=== PATIENT | female | born 1965 | race African-American/Black ===

== ENCOUNTER → 2016-10-31 | Day surgery (SDC) | payer BC ==
[~2016-10-31] MED LIST: ALPR0.5T PO; AMLO1TAB6 PO; CYCL10TA2 PO; ESTR0.5T PO; HYDR-2762 PO; IBUP-1060 PO; IV RINGERS,LACTATED 1000ML 1,000 ML IV SCH; LABE100T3 PO; LIDOCAINE 2% PF Vial for OR 5 ML VIAL. ONE; ORPH100T PO; PROPOFOL 40 ML IV ONE; TELM80TA PO
[2016-10-31 17:00] VITALS: BP 124/71
== END | disposition home or self-care (01) ==
LOC: ENDOS 14:48
PROVIDERS: ATTEND Internal Medicine Gastroenterology
DX: Z12.11 Encounter for screening for malignant neoplasm of colon (principal); K64.0 First degree hemorrhoids; K57.30 Diverticulosis of large intestine without perforation or abscess without bleeding; F41.9 Anxiety disorder, unspecified; I10 Essential (primary) hypertension; Z91.041 Radiographic dye allergy status; Z83.3 Family history of diabetes mellitus; Z82.49 Family history of ischemic heart disease and other diseases of the circulatory system; Z86.69 Personal history of other diseases of the nervous system and sense organs; Z90.710 Acquired absence of both cervix and uterus; Z98.51 Tubal ligation status
CPT/HCPCS: 45378; J2001; J2704

== ENCOUNTER → 2017-02-19 | Outpatient (CLI) | payer BC ==
[2016-10-31 17:00] VITALS: BP 124/71
[~2017-02-19] MED LIST changes: -IV RINGERS,LACTATED 1000ML 1,000 ML IV SCH; -LIDOCAINE 2% PF Vial for OR 5 ML VIAL. ONE; -PROPOFOL 40 ML IV ONE
--- NOTE | 2017-02-19 12:01 | KCIC ---
DATE: 02/19/2017 EXAM: MAMMO JONEL SCREENING BILATERAL HISTORY: Routine screening COMPARISON: 08/14/2013 This study was interpreted with the benefit of Computerized Aided Detection (CAD). The breast parenchyma shows scattered fibroglandular densities. Breast parenchyma level B. FINDINGS: 2-D and 3-D tomosynthesis imaging was performed in CC and MLO projection. No new or enlarging breast densities are seen. There multiple benign type calcifications in both breasts. No suspicious microcalcifications have developed. Benign-appearing lymph node type densities are present in the axillary regions. IMPRESSION: Stable mammograms without evidence of malignancy. BI-RADS CATEGORY: 2 BENIGN FINDING(S) RECOMMENDED FOLLOW-UP: 12M 12 MONTH FOLLOW-UP PQRS compliance statement: Patient information was entered into a reminder system with a target due date for the next mammogram. Mammography is a sensitive method for finding small breast cancers, but it does not detect them all and is not a substitute for careful clinical examination. A negative mammogram does not negate a clinically suspicious finding and should not result in delay in biopsying a clinically suspicious abnormality. "Our facility is accredited by the [employer] Mammography Program."
== END | disposition home or self-care (01) ==
LOC: KCIC MAMMO 09:40
PROVIDERS: ATTEND Family Medicine
DX: Z12.31 Encounter for screening mammogram for malignant neoplasm of breast (principal)
CPT/HCPCS: 77063; G0202; 77067

== ENCOUNTER 2017-02-23 06:24 | Outpatient (CLI) | payer BC ==
[2017-02-23] VITALS (11 sets, daily range): BP systolic 80–154; BP diastolic 80–98
[~2017-02-23] VITALS: Ht 165.1 cm; Wt 85.7 kg
[~2017-02-23 06:24] MED LIST changes: -CYCL10TA2 PO; -ESTR0.5T PO; -ORPH100T PO
[2017-02-23] MEDS ORDERED: diphenhydrAMINE 50 MG/ML VIAL IVP ONE (06:45)
[2017-02-23] MEDS ORDERED: FAMOTIDINE 20 MG/2 ML VIAL IVP ONE (06:45)
[2017-02-23] MEDS ORDERED: methylPREDNISolone SOD SUCC PF 125 MG/2 ML VIAL. IV ONE (06:45)
[2017-02-23] MEDS ORDERED: CYCL10TA2 PO (07:03)
[2017-02-23] MEDS ORDERED: ESTR0.5T PO (07:03)
[2017-02-23] MEDS ORDERED: ORPH100T PO (07:03)
[2017-02-23 07:21] LABS: HEMATOCRIT 41.2 % (36.0-47.0); HEMOGLOBIN 13.4 g/dL (12.0-15.5); RED BLOOD COUNT 4.88 x10^6/uL (3.50-5.40); RED CELL DISTRIBUTION WIDTH 14.4 % (11.5-14.5); WHITE BLOOD COUNT 7.6 x10^3/uL (4.0-11.0)
[2017-02-23 07:31] LABS: CALCIUM 8.8 mg/dL (8.5-10.1); GFR 70.5; POTASSIUM 3.5 mmol/L (3.5-5.1)
[2017-02-23 07:34] LABS: PROTHROMBIN TIME PATIENT 12.4 SEC (11.7-14.0)
[2017-02-23] MEDS ORDERED: diphenhydrAMINE 50 MG/ML VIAL ONE (07:34)
[2017-02-23] MEDS ORDERED: methylPREDNISolone SOD SUCC PF 125 MG/2 ML VIAL. ONE (07:34)
[2017-02-23] MEDS ORDERED: FAMOTIDINE 20 MG/2 ML VIAL ONE (07:34)
[2017-02-23] MEDS ORDERED: LIDOCAINE 2% 20 ML VIAL. ONE (07:42)
[2017-02-23] MEDS ORDERED: IOHEXOL 300 MG/ML 100ML VIAL. ONE (07:42)
[2017-02-23] MEDS ORDERED: fentaNYL PF VIAL 100 MCG/2 ML VIAL ONE (07:57)
[2017-02-23] MEDS ORDERED: MIDAZOLAM HCL/PF 2 MG/2 ML VIAL. ONE (07:58)
--- NOTE | 2017-02-23 08:03 | PDOC ---
MODERATE SEDATION ASSESSMENT RISKS/ALTERNATIVES Risks/Alternatives Risks and alternatives of this type of sedation and procedure discussed with: RISK/ALTERNATIVES: Patient H & P ON CHART H & P H & P on chart and reviewed for co-morbid conditions and appropriate labs. H&P ON CHART: Yes STATUS PREG STATUS ASSESSED: N/A MEDS/ALLERGIES REVIEWED Meds/Allergies Reviewed Medications and Allergies including time and route of recently administered narcotics and sedatives. MEDS/ALLERGIES REVIEWED: Yes ASA RATING ASA RATING: II AIRWAY ASSESSMENT Airway Assessment Airway patency, oral function limitations, presence of caps, crowns, dentures, partials, and ability to extend neck assessed. AIRWAY ASSESSMENT: Yes MALLAMPATI SCORE MALLAMPATI SCORE: II PRE-SEDATION ASSESSMENT PRE-SEDATION ASSESSMENT: Yes CARLOS FINE MD Feb 23, 2017 08:03
[2017-02-23] MEDS ORDERED: IOHEXOL 300 MG/ML 100ML VIAL. IART ONE (08:45)
[2017-02-23] MEDS ORDERED: LIDOCAINE 2% 20 ML VIAL. IJ ONE (08:45)
[2017-02-23] MEDS ORDERED: fentaNYL PF VIAL 100 MCG/2 ML VIAL IV ONE (08:45)
[2017-02-23] MEDS ORDERED: MIDAZOLAM HCL/PF 2 MG/2 ML VIAL. IV ONE (08:45)
[2017-02-23] MEDS ORDERED: IV 1/2 NORMAL SALINE 1,000 ML IV SCH (08:49)
[2017-02-23] MEDS ORDERED: NITROGLYCERIN SUBLINGUAL 0.4 MG BOTTLE OF 25. SL PRN (09:00)
--- NOTE | 2017-02-23 09:17 | CARD ---
APPROVED REPORT Procedure(s) performed: 1. Left heart catheterization, selective coronary angiography and left ventr iculography 2. Bilateral selective renal angiography Moderate Sedation: 39 Minutes INDICATION The indication(s) include : Unstable angina and resistant hypertension. PROCEDURE NARRATIVE After explaining the risks, benefits and alternative options, informed consent was obtained from beronica ent. Patient was brought to the cardiac Production Control Technologist and her right groin was prepped and draped in the us ual fashion. 20 mL of 2% lidocaine was infiltrated into the skin and subcutaneous tissues for local a nesthesia. Arterial access was obtained in the right common femoral artery and a 6 [place] sheath was inserted. 6 [place] JL4 and 6 [place] JR4 catheters were used to perform selective angiography of the l eft and right coronary arteries. The 6 [place] JR4 catheter was used to perform selective angiography of the left and right renal arteries. Finally, 6 [place] pigtail catheter was used to perform left shannan triculography. Patient tolerated the procedure well. Hemostasis was achieved using Angio-Seal. There were no immediate complications. The following findings were noted. FINDINGS 1. Hemodynamics: Left ventricular end-diastolic pressure 19 mmHg. No pullback gradient across the ao rtic valve. 2. Left ventriculography: Normal left ventricle systolic function with ejection fraction estimated at 65-70%. No significant mitral concussion seen. 3. Coronary angiography: a. The left main coronary artery arose from the left sinus of Valsalva, gave rise to the left anteri or descending, ramus intermedius and left circumflex arteries and showed 40-50% calcified stenosis in the distal segment. b. The left anterior descending artery showed 90% stenosis in the proximal segment, 90% stenosis fol lowed by 100% chronic total occlusion in the midsegment. There is reconstitution of the very distal s egment from left to left collaterals. c. The ramus intermedius artery showed 90% proximal segment and 80% midsegment stenoses. d. The left circumflex artery showed 90% stenosis in the midsegment. The first obtuse marginal branc h showed 90% stenosis in the proximal segment. The second obtuse marginal branch showed 50% stenosis in the proximal segment. e. The right coronary artery arose from the right sinus of Valsalva that showed 95-99% stenosis in th e midsegment followed by 100% chronic total occlusion in the mid to distal segment. There is distal r econstitution of the posterior descending branch from left to right and right to right collaterals. 4. Selective renal angiography: The left kidney is supplied by one main renal artery that did not s how any significant stenosis. The right kidney is supplied by one main renal artery as felt that show ed mild fibromuscular dysplasia in the midsegment. Conclusion 1. Significant three-vessel coronary artery disease as described above. 2. Normal left ventricle systolic function with ejection fraction estimated at 65-70%. 3. No significant renal artery stenosis. Mild fibromuscular dysplasia noted in the right renal arter y. Recommendations Cardiothoracic surgical team referral for possible coronary artery bypass surgery.
== END 2017-02-23 11:30 | disposition home or self-care (01) ==
LOC: CCL 06:24
PROVIDERS: ATTEND Internal Medicine Cardiovascular Disease
DX: I25.10 Atherosclerotic heart disease of native coronary artery without angina pectoris (principal); K21.9 Gastro-esophageal reflux disease without esophagitis; I10 Essential (primary) hypertension; F41.9 Anxiety disorder, unspecified; Z90.710 Acquired absence of both cervix and uterus; Z86.69 Personal history of other diseases of the nervous system and sense organs; Z98.51 Tubal ligation status; Z91.041 Radiographic dye allergy status
CPT/HCPCS: 36252; 80048; 85027; 85610; 93458; 99152; 99153; C1769; C1771; C1892; G0269; J1200; J1644; J2250; J2930; J3010; Q9967; S0028; J2001

== ENCOUNTER → 2017-04-23 | Outpatient (CLI) | payer BC | END | disposition home or self-care (01) | LOC: KCIC US 09:34 | DX: M79.89 Other specified soft tissue disorders (principal); Z95.1 Presence of aortocoronary bypass graft | CPT/HCPCS: 93971 ==

== ENCOUNTER → 2018-03-01 | Outpatient (CLI) | payer BC ==
[2017-02-23 10:45] VITALS: BP_DIAS 80
[2017-02-23 11:06] VITALS: BP_SYST 80
[~2018-03-01] MED LIST changes: +CYCL10TA2 PO; +ESTR0.5T PO; -HYDR-2762 PO; +HYDR-2765 PO; -LABE100T3 PO; +LABE100T5 PO; +ORPH100T PO
--- NOTE | 2018-03-01 10:40 | RAD ---
MR#: [id number] Date of Study: 03/01/2018 Ordering Physician: CARLOS FINE, Referring Physician: CARLOS FINE, Tech: Tristin Murillo MBA, RDMS, RVT, RDCS, RTR APPROVED REPORT Patient Location : OUT-PATIENT Indications Lower Extremity Edema : Bilateral Findings The right great saphenous vein measures 8.1 mm the left great saphenous vein measures 4.4 mm. Both of these veins do not demonstrate any evidence of reflux. The bilateral lesser saphenous veins do not demonstrate any evidence of reflux Bilateral saphenofemoral junctions do not reveal any obvious evidence of thrombus on limited imaging. Critical Notification Critical Value: No Signed by : Lebron Armando, Electronically Approved : 03/01/2018 10:39:28
== END | disposition home or self-care (01) ==
LOC: US 08:19
PROVIDERS: ATTEND Internal Medicine Cardiovascular Disease
DX: R60.0 Localized edema (principal)
CPT/HCPCS: 93970

== ENCOUNTER → 2018-11-20 | Outpatient (CLI) | payer BC ==
[2017-02-23 10:45] VITALS: BP_DIAS 80
[2017-02-23 11:06] VITALS: BP_SYST 80
--- NOTE | 2018-11-20 12:43 | KCIC ---
MR of the right shoulder HISTORY: Right shoulder pain, chronic. Limited range of motion. TECHNIQUE: Routine multiplanar sequences are obtained. FINDINGS: The acromioclavicular joint is degenerative with moderate undersurface hypertrophy and mass effect. Full-thickness rupture of the supraspinatus tendon. Margins are difficult to define due to the lack of much effusion but retraction measures about 2 cm and the tear measures at least 2.5 cm AP diameter. Trace subdeltoid bursal effusion. Gcel-yu-rzjodwox rotator cuff muscle atrophy. No significant glenohumeral joint effusion. Mild degenerative changes at the glenohumeral joint. Biceps tendinosis with mild partial interstitial tearing. No bone destruction or acute fracture. No acute soft tissue abnormality. IMPRESSION: 1. Moderate full-thickness rotator cuff tear of the supraspinatus tendon. 2. Biceps tendinosis with mild partial interstitial tear. 3. Primary osteoarthritis. Electronically signed by: Valentin Duarte MD (11/20/2018 12:40 PM) [facility]
== END | disposition home or self-care (01) ==
LOC: KCIC MRI 07:49
PROVIDERS: ATTEND Family Medicine
DX: M75.101 Unspecified rotator cuff tear or rupture of right shoulder, not specified as traumatic (principal); M19.011 Primary osteoarthritis, right shoulder
CPT/HCPCS: 73221

== ENCOUNTER → 2019-01-10 | Outpatient (CLI) | payer BC ==
[2017-02-23 10:45] VITALS: BP_DIAS 80
[2017-02-23 11:06] VITALS: BP_SYST 80
--- NOTE | 2019-01-10 16:52 | KCIC ---
Examination: THYROID ULTRASOUND History: Thyroid goiter Comparison/Correlation: None Findings: Right thyroid lobe measures 5.3 cm x 1.1 cm x 1.6 cm. Left thyroid lobe measures 5.5 cm x 1.2 cm x 1.8 cm. Normal echotexture is present. No masses or cysts. Prominent vessels within the left thyroid lobe medially are present with flow evident. Thyroid isthmus is unremarkable measuring up to 0.2 cm anteroposterior. Impression: No thyroid goiter. No thyroid mass identified. Unremarkable exam. Electronically signed by: Tate Luna MD (01/10/2019 4:49 PM) [facility]
--- NOTE | 2019-01-12 08:48 | KCIC ---
BILATERAL SCREENING MAMMOGRAM, 3-D History: Routine screening. Comparison: None available. Technique: MLO and CC digital tomosynthesis (3D) images obtained. Radiologist reviewed these images on dedicated workstation. Findings: Breast Tissue Density B : There are scattered areas of fibroglandular density. There are a few bilateral benign calcifications. There are no dominant masses, suspicious microcalcifications, or architectural distortion. IMPRESSION: No mammographic evidence of malignancy. Recommend routine screening. BI-RADS category 2: Benign findings. The images were reviewed with computer-aided detection. Patient information is entered into reminder system with a target due date for the next screening mammogram. Mammography is the most sensitive method for finding small breast cancers, but it does not detect them all and is not a substitute for careful clinical examination. A negative mammogram does not negate a clinically suspicious finding and should not result in delay in biopsying a clinically suspicious abnormality. "Our facility is accredited by the [employer] Mammography Program." Electronically signed by: Jonathan Buchanan MD (01/12/2019 8:46 AM) [id number]
== END | disposition home or self-care (01) ==
LOC: KCIC US 14:43
PROVIDERS: ATTEND Family Medicine
DX: Z12.31 Encounter for screening mammogram for malignant neoplasm of breast (principal); N64.89 Other specified disorders of breast; E04.9 Nontoxic goiter, unspecified
CPT/HCPCS: 76536; 77063; 77067

== ENCOUNTER → 2019-02-26 | Outpatient (CLI) | payer BC ==
[2017-02-23 10:45] VITALS: BP_DIAS 80
[2017-02-23 11:06] VITALS: BP_SYST 80
--- NOTE | 2019-02-26 11:15 | CARD ---
MR#: [id number] Date of Study: 02/26/2019 Ordering Physician: CARLOS FINE, Referring Physician: CARLOS FINE, Tech: Jennifer Ruizspeedy APPROVED REPORT EXAM: Two-dimensional and M-mode echocardiogram with Doppler and color Doppler. Other Information Quality : AverageHR: 57bpm INDICATION Cardiac Disease: CAD Surgery/Intervention CABG: Date: 2017 3x Bypass RISK FACTORS Hypertension Hyperlipidemia 2D DIMENSIONS RVDd3.6 (2.9-3.5cm)Left Atrium(2D)3.5 (1.6-4.0cm) IVSd1.0 (0.7-1.1cm)Aortic Root(2D)3.1 (2.0-3.7cm) LVDd4.5 (3.9-5.9cm)LVOT Diameter2.0 (1.8-2.4cm) PWd0.9 (0.7-1.1cm)LVDs2.7 (2.5-4.0cm) FS (%) 39.2 %SV64.7 ml LVEF(%)69.8 (>50%) Aortic Valve AoV Peak Wilmar.175.0cm/sAoV VTI39.6cm AO Peak GR.12.3mmHgLVOT Peak Wilmar.116.1cm/s LVOT VTI 30.20cmAO Mean GR.7mmHg SAIGE (VMAX)1.96pn3MEO (VTI)2.31cm2 Mitral Valve MV E Cyrybvsv445.4cm/sMV DECEL KEEO649yy MV A Akgyhigk71.2cm/sMV XRH72dg E/A Ratio1.3MVA (PHT)3.27cm2 TDI E/Lateral E'7.4E/Medial E'12.8 Pulmonary Valve PV Peak Faevknah766.7cm/sPV Peak Grad.4mmHg Tricuspid Valve TR P. Baitnqvm794os/sRAP IGITRSMO6gtEk TR Peak Gr.70psZqOKHB91zkMp Pulmonary Vein S1 Nwlvowtz80.6cm/sD2 Tlneumgg93.2cm/s PVa xhyvdqvq396ewox LEFT VENTRICLE The left ventricle is normal size. There is normal left ventricular wall thickness. The left ventricu lar systolic function is normal. The Ejection Fraction is 60%. There is normal LV segmental wall alondra on. Transmitral Doppler flow pattern is Grade II-pseudonormal filling dynamics. RIGHT VENTRICLE The right ventricle is normal size. There is normal right ventricular wall thickness. The right ventr icular systolic function is normal. ATRIA The left atrium size is normal. The right atrium size is normal. The atrial septum is aneurysmal. AORTIC VALVE The aortic valve is thickened but opens well. Doppler and Color Flow revealed no significant aortic r egurgitation. There is no significant aortic valvular stenosis. MITRAL VALVE The mitral valve is thickened but opens well. There is no evidence of mitral valve prolapse. There is no mitral valve stenosis. Doppler and Color-flow revealed trace mitral regurgitation. TRICUSPID VALVE The tricuspid valve is normal in structure and function. Doppler and Color Flow revealed trace tricus pid regurgitation with an estimated PAP of 35 mmHg. There is no tricuspid valve stenosis. PULMONIC VALVE The pulmonic valve is not well visualized. Doppler and Color Flow revealed trace to mild pulmonic rakel vular regurgitation. GREAT VESSELS The aortic root is normal in size. The IVC was not well visualized. PERICARDIAL EFFUSION There is no evidence of significant pericardial effusion. Critical Notification Critical Value: No <Conclusion> The left ventricular systolic function is normal. The Ejection Fraction is 60%. There is normal LV segmental wall motion. Trace mitral regurgitation. Trace tricuspid regurgitation with an estimated PAP of 35 mmHg. There is no evidence of significant pericardial effusion. Signed by : Carlos Fine, Electronically Approved : 02/26/2019 11:15:16
== END ==
LOC: ECHO 08:56
PROVIDERS: ATTEND Internal Medicine Cardiovascular Disease
DX: I37.1 Nonrheumatic pulmonary valve insufficiency (principal); I25.810 Atherosclerosis of coronary artery bypass graft(s) without angina pectoris; I11.9 Hypertensive heart disease without heart failure; E78.5 Hyperlipidemia, unspecified; K21.9 Gastro-esophageal reflux disease without esophagitis; F41.9 Anxiety disorder, unspecified; M19.90 Unspecified osteoarthritis, unspecified site; Z90.710 Acquired absence of both cervix and uterus; Z98.51 Tubal ligation status
CPT/HCPCS: 93306

== ENCOUNTER → 2020-07-14 | Outpatient (CLI) | payer BC ==
[2017-02-23 10:45] VITALS: BP_DIAS 80
[2017-02-23 11:06] VITALS: BP_SYST 80
--- NOTE | 2020-07-14 10:16 | RAD ---
MR#: [id number] Date of Study: 07/14/2020 Ordering Physician: CARLOS FINE, Referring Physician: CARLOS FINE, Tech: Tristin Murillo MBA, RDMS, RVT, RDCS, RTR APPROVED REPORT Patient Location: OUT-PATIENT Laterality:Bilateral Indications CAD Doppler Spectral Velocity Analysis Right Left pCCA 102/21 cm/spCCA 106/24 cm/s mCCA 113/29 cm/smCCA 103/24 cm/s dCCA 116/27 cm/sdCCA 96/26 cm/s Bulb 81/17 cm/sBulb 84/25 cm/s ECA 93/ cm/sECA 56/ cm/s pICA 83/22 cm/spICA 63/19 cm/s Katelin 97/20 cm/smICA 76/25 cm/s dICA 87/30 cm/sdICA 79/30 cm/s Vert. 76/ cm/sVert. 98/ cm/s Subcl. 128/ cm/sSubcl. 114/ cm/s ICA/CCA 0.84ICA/CCA 0.75 Findings Grayscale images of the bilateral carotid vessels demonstrates mild diffuse intimal hyperplasia and p laque without any significant focal obstruction. Bilateral velocities are within normal limits overall suggestive of 0 to less than 50% stenosis based on velocity criteria. Normal ICA to CCA ratios bilaterally. Normal antegrade vertebral velocities bilaterally and normal subclavian velocities bilaterally. Critical Notification Critical Value: No <Conclusion> 1. No significant carotid occlusive disease bilaterally. Signed by : Lebron Armando, Electronically Approved : 07/14/2020 10:16:41
--- NOTE | 2020-07-14 11:58 | CARD ---
MR#: [id number] Date of Study: 07/14/2020 Ordering Physician: CARLOS FINE, Referring Physician: CARLOS FINE, Tech: Jennifer Jimenez [facility] APPROVED REPORT EXAM: Two-dimensional and M-mode echocardiogram with Doppler and color Doppler. Other Information Quality : AverageHR: 51bpm INDICATION Cardiac Disease: CAD Surgery/Intervention CABG: Date: 2017 RISK FACTORS Hypertension Hyperlipidemia 2D DIMENSIONS RVDd4.3 (2.9-3.5cm)Left Atrium(2D)3.3 (1.6-4.0cm) IVSd1.0 (0.7-1.1cm)Aortic Root(2D)3.1 (2.0-3.7cm) LVDd4.1 (3.9-5.9cm)LVOT Diameter2.1 (1.8-2.4cm) PWd1.0 (0.7-1.1cm)LVDs3.0 (2.5-4.0cm) FS (%) 27.5 %SV41.1 ml LVEF(%)53.9 (>50%) Aortic Valve AoV Peak Wilmar.148.5cm/sAoV VTI32.8cm AO Peak GR.8.8mmHgLVOT Peak Wilmar.100.2cm/s LVOT VTI 28.26cmAO Mean GR.4mmHg SAIGE (VMAX)1.06zh6PGA (VTI)2.85cm2 Mitral Valve MV E Ktusyfxa06.0cm/sMV DECEL UCAU732vd MV A Xvpxctiq06.7cm/sMV RUZ65jd E/A Ratio1.0MVA (PHT)2.23cm2 TDI E/Lateral E'6.0E/Medial E'9.5 Pulmonary Valve PV Peak Wrbnnfjb135.6cm/sPV Peak Grad.5mmHg Tricuspid Valve TR P. Yxtpaifb984wy/sRAP DCINUGZN5sjHv TR Peak Gr.00yaAaMPBX77hpNq Pulmonary Vein S1 Urccndku77.7cm/sD2 Gzfzhjjn73.5cm/s PVa lcockaes777ugib LEFT VENTRICLE The left ventricle is normal size. There is normal left ventricular wall thickness. The left ventricu lar systolic function is normal and the ejection fraction is within normal range. The Ejection Fracti on is 50-55%. There is normal LV segmental wall motion. Transmitral Doppler flow pattern is Grade I-a bnormal relaxation pattern. RIGHT VENTRICLE The right ventricle is borderline dilated. There is normal right ventricular wall thickness. The righ t ventricular systolic function is normal. ATRIA The left atrium size is normal. The right atrium size is normal. The interatrial septum is intact wit h no evidence for an atrial septal defect or patent foramen ovale as noted on 2-D or Doppler imaging. AORTIC VALVE The aortic valve is calcified but opens well. Doppler and Color Flow revealed no significant aortic r egurgitation. There is no significant aortic valvular stenosis. Calculated aortic valve area is 2.93 cm2 with maximum pressure gradient of 9 mmHg and mean pressure gradient of 5 mmHg. MITRAL VALVE The mitral valve is normal in structure and function. There is no evidence of mitral valve prolapse. There is no mitral valve stenosis. Doppler and Color-flow revealed trace mitral regurgitation. TRICUSPID VALVE The tricuspid valve is normal in structure and function. Doppler and Color Flow revealed trace tricus pid regurgitation with an estimated PAP of 33 mmHg. There is no tricuspid valve stenosis. PULMONIC VALVE The pulmonic valve is not well visualized. Doppler and Color Flow revealed trace pulmonic valvular re gurgitation. There is no pulmonic valvular stenosis. GREAT VESSELS The aortic root is normal in size. The ascending aorta is normal in size. The IVC is dilated. PERICARDIAL EFFUSION There is no evidence of significant pericardial effusion. Critical Notification Critical Value: No <Conclusion> The left ventricular systolic function is normal and the ejection fraction is within normal range. Th e Ejection Fraction is 50-55%. There is normal LV segmental wall motion. Signed by : Lebron Armando, Electronically Approved : 07/14/2020 11:57:41
== END ==
LOC: US 06:46
PROVIDERS: ATTEND Internal Medicine Cardiovascular Disease
DX: I35.1 Nonrheumatic aortic (valve) insufficiency (principal); I65.23 Occlusion and stenosis of bilateral carotid arteries; I25.810 Atherosclerosis of coronary artery bypass graft(s) without angina pectoris
CPT/HCPCS: 93306; 93880

== ENCOUNTER → 2021-04-22 | Outpatient (CLI) | payer BC ==
[2017-02-23 10:45] VITALS: BP_DIAS 80
[2017-02-23 11:06] VITALS: BP_SYST 80
[~2021-04-22] MED LIST changes: +CYCL10TA19 PO; -CYCL10TA2 PO
--- NOTE | 2021-04-22 10:26 | KCIC ---
Bilateral digital screening mammograms with 3-D tomosynthesis: Reason for examination: Routine screening. Comparison is made to previous studies dated 01/10/2019 12/10/2016 Bilateral mammograms in CC and oblique projections were obtained with 2-D imaging and 3-D tomosynthes is imaging on a Siemens Inspiration unit and reviewed on the workstation. Interpretation was made wit h the benefit of CAD. The skin and nipples show no abnormalities. No abnormal axillary lymph nodes are seen. The breast par enchyma shows scattered fatty and fibroglandular density. (Breast density: Category B.) There are no dominant masses, suspicious calcifications or architectural distortion. Benign appearing calcificatio ns are present. Impression: No evidence of malignancy. Recommend routine screening. BI-RAD Category 2: Benign. "Our facility is accredited by the [employer] Mammography Program." This patient's information has been entered into a reminder system for the patient to be notified wit h the results of her examination and a target date for the next mammogram. Electronically signed by: Queenie Andrade MD (04/22/2021 10:23 AM) [email or web address]
== END ==
LOC: KCIC MAMMO 08:32
PROVIDERS: ATTEND Family Medicine
DX: Z12.31 Encounter for screening mammogram for malignant neoplasm of breast (principal)
CPT/HCPCS: 77063; 77067

== ENCOUNTER → 2021-07-15 | Outpatient (CLI) | payer BC ==
[2017-02-23 10:45] VITALS: BP_DIAS 80
[2017-02-23 11:06] VITALS: BP_SYST 80
--- NOTE | 2021-07-15 13:23 | CARD ---
MR#: [id number] Date of Study: 07/15/2021 Ordering Physician: NOHELIA MURDOCK, Referring Physician: NOHELIA MURDOCK, Tech: Jen Conrad [facility] APPROVED REPORT EXAM: Two-dimensional and M-mode echocardiogram with Doppler and color Doppler. Other Information Quality : AverageHR: 45bpm Rhythm : NSR INDICATION Palpitations Hypertension/HCVD CAD RISK FACTORS Hypertension Hyperlipidemia 2D DIMENSIONS RVDd3.9 (2.9-3.5cm)Left Atrium(2D)4.2 (1.6-4.0cm) IVSd1.2 (0.7-1.1cm)Aortic Root(2D)3.2 (2.0-3.7cm) LVDd4.5 (3.9-5.9cm)LVOT Diameter2.2 (1.8-2.4cm) PWd1.1 (0.7-1.1cm)IVSs1.5 (0.8-1.2cm) LVDs3.9 (2.5-4.0cm)FS (%) 12.3 % PWs1.2 (0.8-1.2cm)SV24.7 ml Aortic Valve AoV Peak Wilmar.151.6cm/sAoV VTI37.0cm AO Peak GR.9.2mmHgLVOT Peak Wilmar.105.1cm/s LVOT VTI 28.34cmAO Mean GR.5mmHg SAIGE (VMAX)1.91pl8RWB (VTI)2.84cm2 Mitral Valve MV E Edrtrzmi174.5cm/sMV DECEL NKHT707qy MV A Gnekrdbo48.1cm/sMV TOA66in E/A Ratio1.2MVA (PHT)3.29cm2 TDI E/Lateral E'7.6E/Medial E'10.6 Pulmonary Valve PV Peak Bqhwjdre04.4cm/sPV Peak Grad.4mmHg Tricuspid Valve TR P. Mfbsbnhd183xv/sTR Peak Gr.18mmHg LEFT VENTRICLE The left ventricle is normal size. There is mild concentric left ventricular hypertrophy. The left ve ntricular systolic function is normal. LV ejection fraction is 55 to 60%. There is normal LV segmenta l wall motion. The left ventricular diastolic function and filling is normal for age. RIGHT VENTRICLE The right ventricle is normal size. There is normal right ventricular wall thickness. The right ventr icular systolic function is normal. ATRIA The left atrium size is normal. The right atrium size is normal. The interatrial septum is intact wit h no evidence for an atrial septal defect or patent foramen ovale as noted on 2-D or Doppler imaging. AORTIC VALVE The aortic valve is normal in structure and function. Doppler and Color Flow revealed no significant aortic regurgitation. There is no significant aortic valvular stenosis. MITRAL VALVE The mitral valve is normal in structure and function. There is no evidence of mitral valve prolapse. There is no mitral valve stenosis. Doppler and Color-flow revealed trace mitral regurgitation. TRICUSPID VALVE The tricuspid valve is normal in structure and function. Doppler and Color Flow revealed trace tricus pid regurgitation. Estimated PAP 25 mmHg. There is no tricuspid valve stenosis. PULMONIC VALVE The pulmonary valve is normal in structure and function. Doppler and Color Flow revealed no pulmonic valvular regurgitation. GREAT VESSELS The aortic root is normal in size. The ascending aorta is normal in size. The IVC is normal in size a nd collapses >50% with inspiration. PERICARDIAL EFFUSION There is no evidence of significant pericardial effusion. Critical Notification Critical Value: No <Conclusion> The left ventricle is normal size. The left ventricular systolic function is normal. LV ejection fraction is 55 to 60%. There is mild concentric left ventricular hypertrophy. Doppler and Color Flow revealed no significant aortic regurgitation. There is no significant aortic valvular stenosis. Doppler and Color-flow revealed trace mitral regurgitation. Doppler and Color Flow revealed trace tricuspid regurgitation. Estimated PAP 25 mmHg. Signed by : Nohelia Murdock MD Electronically Approved : 07/15/2021 13:22:27
== END ==
LOC: ECHO 08:59
PROVIDERS: ATTEND Internal Medicine Cardiovascular Disease
DX: I51.7 Cardiomegaly (principal); I25.810 Atherosclerosis of coronary artery bypass graft(s) without angina pectoris
CPT/HCPCS: 93306; C8929

== ENCOUNTER 2021-08-05 07:00 | Inpatient (IN) | payer BC ==
[2021-08-05] VITALS (16 sets, daily range): BP systolic 127–169; BP diastolic 60–89
[~2021-08-05] VITALS: Ht 167.6 cm; Wt 100.4 kg
[2021-08-05] MEDS: IV 1/2 NORMAL SALINE 1,000 ML IV SCH ×2 (04:30→14:00)
[2021-08-05] MEDS ORDERED: FURO40TA4 PO (07:25)
[2021-08-05] MEDS ORDERED: METO50TA6 PO (07:25)
[2021-08-05] MEDS ORDERED: ASPI-630 PO (07:25)
[2021-08-05] MEDS ORDERED: fentaNYL PF VIAL 100 MCG/2 ML VIAL ONE (08:07)
[2021-08-05] MEDS ORDERED: MIDAZOLAM HCL/PF 5 MG/5 ML VIAL. ONE (08:07)
[2021-08-05] MEDS ORDERED: IODIXANOL 320 MG/ML 100 ML VIAL. ONE ×2 (08:11→09:16)
[2021-08-05] MEDS ORDERED: LIDOCAINE 1% Multi-Dose 20 ML VIAL. ONE (08:11)
[2021-08-05 08:23] LABS: HEMATOCRIT 36.8 % (36.0-47.0); HEMOGLOBIN 12.2 g/dL (12.0-15.5); RED BLOOD COUNT 4.59 x10^6/uL (3.50-5.40); WHITE BLOOD COUNT 6.5 x10^3/uL (4.0-11.0)
[2021-08-05] MEDS ORDERED: FAMOTIDINE 20 MG/2 ML VIAL ONE (08:23)
[2021-08-05] MEDS ORDERED: methylPREDNISolone SOD SUCC PF 125 MG/2 ML VIAL. ONE (08:23)
[2021-08-05] MEDS ORDERED: diphenhydrAMINE 50 MG/ML VIAL ONE (08:24)
[2021-08-05 08:30] LABS: PROTHROMBIN TIME PATIENT 12.4 SEC (11.7-14.0)
[2021-08-05] MEDS ORDERED: FAMOTIDINE 20 MG/2 ML VIAL IVP ONE (08:30)
[2021-08-05] MEDS ORDERED: methylPREDNISolone SOD SUCC PF 125 MG/2 ML VIAL. IV ONE (08:30)
[2021-08-05] MEDS ORDERED: diphenhydrAMINE 50 MG/ML VIAL IVP ONE (08:30)
[2021-08-05 08:31] LABS: CALCIUM 9.2 mg/dL (8.5-10.1); GFR 69.1; POTASSIUM 4.2 mmol/L (3.5-5.1)
[2021-08-05] MEDS ORDERED: LIPITOR80 MG PO (08:46)
[2021-08-05] MEDS ORDERED: fentaNYL PF VIAL 100 MCG/2 ML VIAL IV ONE (09:00)
[2021-08-05] MEDS ORDERED: MIDAZOLAM HCL/PF 5 MG/5 ML VIAL. IV ONE (09:00)
[2021-08-05] MEDS ORDERED: LIDOCAINE 1% Multi-Dose 20 ML VIAL. INJ ONE (09:00)
[2021-08-05] MEDS ORDERED: IODIXANOL 320 MG/ML 100 ML VIAL. IART ONE (09:00)
[2021-08-05] MEDS ORDERED: BIVALIRUDIN 250 MG VIAL. IVP ONE ×2 (09:06→09:15)
[2021-08-05] MEDS ORDERED: ASPIRIN 325 MG TABLET ONE (09:56)
[2021-08-05] MEDS ORDERED: TICAGRELOR 90 MG TABLET. ONE (09:56)
[2021-08-05] MEDS ORDERED: TICAGRELOR 90 MG TABLET. PO ONE (10:00)
[2021-08-05] MEDS ORDERED: ASPIRIN 325 MG TABLET PO ONE (10:00)
--- NOTE | 2021-08-05 10:11 | PDOC ---
MODERATE SEDATION ASSESSMENT RISKS/ALTERNATIVES Risks/Alternatives Risks and alternatives of this type of sedation and procedure discussed with: RISK/ALTERNATIVES: Patient H & P ON CHART H & P H & P on chart and reviewed for co-morbid conditions and appropriate labs. H&P ON CHART: Yes STATUS PREG STATUS ASSESSED: N/A MEDS/ALLERGIES REVIEWED Meds/Allergies Reviewed Medications and Allergies including time and route of recently administered narcotics and sedatives. MEDS/ALLERGIES REVIEWED: Yes ASA RATING ASA RATING: III AIRWAY ASSESSMENT Airway Assessment Airway patency, oral function limitations, presence of caps, crowns, dentures, partials, and ability to extend neck assessed. AIRWAY ASSESSMENT: Yes MALLAMPATI SCORE MALLAMPATI SCORE: II PRE-SEDATION ASSESSMENT PRE-SEDATION ASSESSMENT: Yes ACRLOS FINE MD August 05, 2021 10:11
[2021-08-05] MEDS ORDERED: NITROGLYCERIN SUBLINGUAL 0.4 MG BOTTLE OF 25. SL PRN (10:15)
[2021-08-05] MEDS ORDERED: ACETAMINOPHEN 325 MG TABLET. PO PRN (10:15)
[2021-08-05] MEDS ORDERED: FUROSEMIDE 40 MG/4 ML VIAL. IVP ONE ×2 (10:30→17:45)
--- NOTE | 2021-08-05 10:40 | CARD ---
MR#: [id number] Date of Study: 08/05/2021 Ordering Physician: CARLOS CROW, Referring Physician: CARLOS CROW, Tech: RT Rodolfo(R) APPROVED REPORT Technologist: RT Rodolfo(R) Nurse: Bernie Wilkins RN Procedure(s) performed: 1. Right and left heart catheterization, selective coronary angiography and selective angiography of the bypass grafts 2. Successful complex PCI/drug-eluting stent placement to the saphenous vein graft to obtuse margina l branch fluoro time: 22.7min dose: 129 GYcm2 contrast: 121cc moderate sedation: 95min INDICATION The indication(s) include : Unstable angina and refractory dyspnea in a patient with known history of coronary artery disease s/p CABG. [facility] Clinical Frailty Scale [facility] Clinical Frailty Scale: Mildly Frail Heart Failure Heart Failure: Yes If Yes, Newly Diagnosed: No If Yes, HF Type: Diastolic If Yes, NYHA Class: Class II CASE TECHNIQUE IV conscious sedation was used throughout procedure with appropriate monitoring and was performed in the presence of a registered nurse who was an independent trained observer other than the physician p erforming the procedure. During this case, Fluoroscopy and low osmolar contrast were used for imaging . Specimen(s) Removed: No Estimated Blood loss: 15 cc's. PROCEDURE NARRATIVE After explaining the risk, benefits and alternative options, informed consent was obtained from patie nt. Patient was brought to the cardiac Maintenance Carpenter and her right groin was prepped and draped in the us ual fashion. 20 cc of 2% lidocaine was infiltrated to the skin and subcutaneous tissues for local an esthesia. Arterial and venous accesses were obtained in the right common femoral artery and vein res pectively and 6 and 8 Nigerian sheaths inserted. A 7.5 Nigerian [place] catheter was then advanced und er fluoroscopy guidance and intracardiac pressures, oxygen saturations and cardiac output by Gisel met hod measured. Subsequently, 6 Nigerian JL 4 and 6 Nigerian JR4 catheters were used to perform selective angiography of the left and right coronary arteries. The 6 Nigerian JR4 catheter was then used to perf orm selective angiography of the saphenous vein graft to the diagonal branch, the saphenous vein miryam t to the obtuse marginal branch of left circumflex artery and also the left internal mammary artery g raft to the left anterior descending artery. LVEDP and transaortic gradients were measured. Left ve ntriculography was not performed since recent 2D echo showed normal LV systolic function. The follow ing findings were noted: FINDINGS A. RIGHT HEART CATHETERIZATION 1. Intracardiac pressures: Mean right atrial pressure 14 mmHg, right ventricular pressure 43/12 mmHg , pulmonary artery pressure 36/12 mmHg with mean PA pressure 29 mmHg and mean pulmonary capillary wed ge pressure 18 mmHg. This is consistent with mild pulmonary hypertension probably secondary to mild acute on chronic diastolic heart failure. 2. Oxygen saturations: Right atrium 64.1%, pulmonary artery 65.2%, femoral arterial sheath 97.5%. N o evidence of intracardiac shunt. 3. Cardiac output by Gisel method 3.3 L/min. B. LEFT HEART CATHETERIZATION 1. Hemodynamics: Elevated left ventricular end-diastolic pressure of 27 mmHg consistent with acute o n chronic diastolic heart failure. No pullback gradient across aortic valve. 2. Coronary and bypass graft angiography: a. The left main coronary artery arose from the left sinus of Valsalva, gave rise to the left anteri or descending, ramus intermedius and left circumflex arteries and showed 30% distal segment stenosis. b. The left anterior descending artery showed 90% stenosis in the proximal segment and 100% chronic total occlusion in the proximal to mid segment. c. The ramus intermedius artery was a small caliber vessel that showed 90% stenosis in the proximal segment and severe diffuse disease distally. d. The left circumflex artery showed 90% calcified stenosis in the midsegment, described [facility]. The first obtuse marginal branch showed chronic total occlusion. e. The right coronary artery arose from the right sinus of Valsalva that showed 90% stenosis in the proximal segment and 100% chronic total occlusion in the midsegment. There is faint distal reconstit ution from left to right collaterals. f. The saphenous vein graft to the diagonal branch showed 100% chronic total occlusion proximally. g. The saphenous vein graft to the first obtuse marginal branch of left circumflex artery which is a large-caliber vessel, showed 90 to 95% stenosis at the anastomosis. h. The left internal mammary artery graft to the left anterior sending artery was widely patent. Di stal to the anastomosis, the left anterior descending artery showed severe diffuse disease, described in prior cardiac catheterization. INTERVENTION The saphenous vein graft to the obtuse marginal branch of left circumflex artery was engaged with a 6 Nigerian JR4 guide catheter. The anastomotic stenosis was crossed with a 0.014 inch [place] gu idewire. Initial attempts to advance balloons across the lesion were unsuccessful. A 5.5 Nigerian gm de liner inner catheter was then advanced over the wire into the mid segment of the saphenous vein gr aft for better backup support. The lesion was then dilated with a 3.0 x 15 mm Euphora balloon. Atte mpts to advance stents across the lesion were unsuccessful. Hence this was dilated again with the 3. 5 x 15 mm NC Euphora noncompliant balloon. Following this, this was successfully treated with a 3.5 x 16 mm [employer] Promus Elite drug-eluting stent. Follow-up angiography showed resolution o f the stenosis to 0% with JASSI-3 distal flow. Patient tolerated the procedure well. Hemostasis was achieved using Angio-Seal and manual compression. There were no immediate complications. JASSI Flow JASSI Flow (Pre-Intervention): JASSI-2 JASSI Flow (Post-Intervention): JASSI-3 Conclusion 1. Severe [place] vessel coronary artery disease s/p CABG as described above with patent NICHOLAS to LAD, chronically occluded SVG to diagonal and 90 to 95% anastomotic stenosis involving the saphenous vein graft to a large obtuse marginal branch. The [place] left circumflex artery showed 90% stenosis in t he midsegment described in prior cardiac catheterization. The right coronary artery was not grafted. 2. Successful complex PCI/drug-eluting stent placement to the saphenous vein graft to the obtuse mar ginal branch of left circumflex artery. 3. Acute on chronic diastolic heart failure as evidenced by elevated LVEDP and pulmonary capillary w edge pressure 4. No evidence of intracardiac shunt Recommendations 1. Aspirin 325 mg daily for 1 month followed by 81 mg daily 2. Ticagrelor 90 mg twice daily 3. Cardiovascular risk factor modification Signed by : Carlos Crow, Electronically Approved : 08/05/2021 10:40:03
--- NOTE | 2021-08-05 12:43 | NUR ---
Patient being admitted to room 668 from [facility]. Taken via bed. Family at bedside. Groin site intact, no bleeding, no sign of hematoma. VS stable. Dr. Crow came to bedside and spoke with patient, answered questions. All belongings taken w/ patient at time of transport. Sher RN gave report to 6S RN, see chart.
[2021-08-05] MEDS ORDERED: ALPRAZolam 0.5 MG TABLET PO PRN (17:30)
[2021-08-05] MEDS ORDERED: IBUPROFEN 400 MG TABLET. PO PRN (17:30)
[2021-08-05] MEDS ORDERED: ATORVASTATIN CALCIUM 40 MG TABLET. PO SCH (21:00)
[2021-08-05] MEDS: METOPROLOL TART IMMED RELEASE 50 MG TABLET. PO SCH (22:15)
[2021-08-06 03:25] VITALS: BP 124/56
[2021-08-06 07:00] VITALS: BP 158/89
[2021-08-06 07:55] VITALS: BP 124/56
[2021-08-06] MEDS: METOPROLOL TART IMMED RELEASE 50 MG TABLET. PO SCH (07:55)
[2021-08-06] MEDS ORDERED: ASPIRIN ENTERIC COATED 325 MG TABLET.DR. PO SCH (08:00)
[2021-08-06] MEDS ORDERED: AMLODIPINE PO SCH (09:00)
[2021-08-06] MEDS ORDERED: ESTRADIOL 1 MG TABLET. PO SCH (09:00)
[2021-08-06] MEDS ORDERED: ATORVASTATIN PO SCH (09:00)
[2021-08-06] MEDS ORDERED: FUROSEMIDE 40 MG TABLET. PO SCH (09:00)
[2021-08-06] MEDS ORDERED: ASPIRIN CHEWABLE 81 MG TABLET. PO SCH (09:00)
[2021-08-06] MEDS ORDERED: ATORVASTATIN CALCIUM 40 MG TABLET. PO SCH (09:00)
[2021-08-06] MEDS ORDERED: TICAGRELOR 90 MG TABLET. PO SCH (09:00)
[2021-08-06] MEDS ORDERED: TICA90TA PO (09:54)
[2021-08-06] MEDS ORDERED: AMLO-187 PO (09:54)
[2021-08-06] MEDS ORDERED: LOSA-73 PO (09:55)
--- NOTE | 2021-08-06 09:58 | PDOC ---
Provider Note Date of Service: DATE: 08/06/21 TIME: 09:56 Provider Note Discharge summary for overnight hospital stay Discharge diagnoses: 1. Coronary artery disease status post coronary artery bypass surgery in 2018 2. Hypertension 3. Dyslipidemia Procedures performed: Cardiac catheterization with PCI to the saphenous vein graft to the obtuse marginal Hospital course: Ms. Fry is a 56-year-old woman who was admitted to the hospital for [facility] observation after PCI on an outpatient basis for unstable angina. She underwent cardiac catheterization via the femoral approach and successful PCI to the saphenous vein graft to the obtuse marginal. She was started on aspirin and ticagrelor. Overnight no acute events. The patient denied any chest pain or dyspnea on the morning of discharge. Vital signs were stable. Examination demonstrated alert and oriented patient. Right groin was clean, dry and intact. Patient was stable for discharge. Discharge instructions discussed with the patient Discharge medications: Aspirin 81 mg daily Ticagrelor 90 mg p.o. twice daily Atorvastatin 80 mg p.o. daily Metoprolol 50 mg p.o. twice daily Losartan 50 mg daily Amlodipine 10 mg daily Furosemide 40 mg as needed Follow-up: Previously scheduled follow-up in [address] Crow Disposition: Home Discharge time greater than 35 minutes Justifications for Admission Other Justification KATIE YOUNG MD August 06, 2021 09:58
--- NOTE | 2021-08-06 10:46 | NUR ---
Discharge Note: JUAN HARRISON Discharge instructions and discharge home medications reviewed with Patient and a copy given. All questions have been answered and understanding verbalized. The following instructions and handouts were given: Cardiac cath information and follow up appointment Discontinued lines and drains: IV and alarm security or surveillance monitor removed Patient discharged to home via family members vehicle
== END 2021-08-06 10:40 | disposition home or self-care (01) | DRG 247 ==
LOC: CCL 07:00 → 6 SOUTH 10:12
PROVIDERS: ADMIT Internal Medicine Cardiovascular Disease; ATTEND Internal Medicine Cardiovascular Disease
PROC: 027034Z Dilation of Coronary Artery, One Artery with Drug-eluting Intraluminal Device, Percutaneous Approach (ICD-10-PCS; principal; 2021-08-05)
PROC: 4A023N8 Measurement of Cardiac Sampling and Pressure, Bilateral, Percutaneous Approach (ICD-10-PCS; 2021-08-05)
PROC: B2111ZZ Fluoroscopy of Multiple Coronary Arteries using Low Osmolar Contrast (ICD-10-PCS; 2021-08-05)
PROC: B2131ZZ Fluoroscopy of Multiple Coronary Artery Bypass Grafts using Low Osmolar Contrast (ICD-10-PCS; 2021-08-05)
PROC: B2181ZZ Fluoroscopy of Left Internal Mammary Bypass Graft using Low Osmolar Contrast (ICD-10-PCS; 2021-08-05)
DX: I25.110 Atherosclerotic heart disease of native coronary artery with unstable angina pectoris (principal); E78.5 Hyperlipidemia, unspecified; I10 Essential (primary) hypertension; Z79.02 Long term (current) use of antithrombotics/antiplatelets; Z79.82 Long term (current) use of aspirin; Z79.899 Other long term (current) drug therapy; Z95.1 Presence of aortocoronary bypass graft
CPT/HCPCS: 92937; 93461; G0269; 36415; 80048; 85027; 85610; 99152; 99153; C1725; C1769; C1773; C1894; J0583; J1200; J1644; J1940; J2250; J2930; J3010; J3490; Q9967; C1874; G0378